=== PATIENT | male | born 1940 | race Caucasian/White ===

== ENCOUNTER 2018-02-09 06:29 | Day surgery (SDC) | payer MEDICARE ==
[2018-02-05 15:11] VITALS: BMI 26.6
[~2018-02-09 06:29] MED LIST: LACTATED RINGERS 1,000 ML IV SCH
[2018-02-09 06:54] VITALS: TEMP 97.6
[2018-02-09] MEDS ORDERED: PROPOFOL 10 MG/ML 20 ML VIAL IV ONE (07:42)
[2018-02-09] MEDS ORDERED: LIDOCAINE 1% INJ 10MG/ML (20 ML MDV) ONE (07:42)
--- NOTE | 2018-02-09 07:52 | P.GSHP ---
History of Present Illness H&P Date: 02/09/18 Chief Complaint: HistoryThe patient was placed on the operating table. The patient Polyps This a 77-year-old male referred from Dr. Martin Durham. Patient is today for colonoscopy. He's had history of previous colonic polyps. He presents today for colonoscopy. His last colonoscopy was 5 years ago. Past Medical History Past Medical History: Hyperlipidemia, Hypertension Additional Past Medical History / Comment(s): HX OF COLON POLYPS History of Any Multi-Drug Resistant Organisms: None Reported Past Surgical History: Tonsillectomy Additional Past Surgical History / Comment(s): TONSILS (CHILD), COLONOSCOPY Past Anesthesia/Blood Transfusion Reactions: No Reported Reaction Past Psychological History: No Psychological Hx Reported Smoking Status: Never smoker Past Alcohol Use History: Occasional Past Drug Use History: None Reported - Past Family History Sister(s) Family Medical History: Cancer Additional Family Medical History / Comment(s): BREAST CANCER (2 SISTERS) Medications and Allergies Home Medications Medication Instructions Recorded Confirmed Type Aspirin [Adult Low Dose Aspirin EC] 81 mg PO DAILY 02/05/18 02/09/18 History Atorvastatin [Lipitor] 10 mg PO HS 02/05/18 02/09/18 History Cholecalciferol [Vitamin D3] 1,000 unit PO DAILY 02/05/18 02/09/18 History Enalapril [Vasotec] 2.5 mg PO HS 02/05/18 02/09/18 History [place]-3 Fatty Acids [[place]-3] 1,000 mg PO DAILY 02/05/18 02/09/18 History Vit C/E/Zn/Coppr/Lutein/Zeaxan 1 each PO DAILY 02/05/18 02/09/18 History [Preservision Areds 2 Softgel] Allergies Allergy/AdvReac Type Severity Reaction Status Date / Time No Known Allergies Allergy Verified 02/05/18 15:06 Surgical - Exam Vital Signs Temp Pulse Resp BP Pulse Ox 97.6 F 60 16 182/83 95 02/09/18 06:52 02/09/18 06:52 02/09/18 06:52 02/09/18 06:52 02/09/18 06:52 - General well developed, no distress - Eyes PERRL - ENT normal pinna - Neck no masses - Respiratory normal expansion - Cardiovascular Rhythm: regular - Abdomen Abdomen: soft, non tender Assessment and Plan Assessment: History of colonic polyps. We'll perform colonoscopy.
--- NOTE | 2018-02-09 08:01 | P.OP ---
Date of Procedure: 02/09/18 Preoperative Diagnosis: History of colon polyps Postoperative Diagnosis: Mild diverticulosis Procedure(s) Performed: Colonoscopy Anesthesia: MAC Surgeon: Alexis Caruso Pathology: none sent Condition: stable Disposition: PACU Description of Procedure: The patient's placed on the endoscopy table in the lateral position. He received IV sedation. Digital rectal exam was performed which revealed no abnormalities. The prostate was symmetric without nodules. The flexible colonoscope was then placed patient anus passed throughout the entire colon. The ileocecal valve was visualized. The cecum, ascending and transverse colon appeared normal. In the descending and sigmoid colon is mild diverticulosis. The scope was then brought back the rectum and this appeared normal. Scope was withdrawn for patient. There were no polyps seen on the colonoscopy.
[2018-02-09 08:07] VITALS: RESP 18
[2018-02-09 08:18] VITALS: BP 151/73; PULSE 64
== END 2018-02-09 08:36 | disposition home or self-care (01) ==
LOC: ORWHC2ENDO 06:29
PROVIDERS: ATTEND Surgery
DX: Z12.11 Encounter for screening for malignant neoplasm of colon (principal); K57.30 Diverticulosis of large intestine without perforation or abscess without bleeding; Z86.010 Personal history of colon polyps; E78.5 Hyperlipidemia, unspecified; I10 Essential (primary) hypertension; Z79.82 Long term (current) use of aspirin; Z79.899 Other long term (current) drug therapy
CPT/HCPCS: J2001; J2704; G0105; 45378

== ENCOUNTER 2024-04-07 07:59 | Day surgery (SDC) | payer MEDICARE ==
[~2024-04-07 07:59] MED LIST changes: -LACTATED RINGERS 1,000 ML IV SCH; +TETRACAINE 0.5% OPHTH (PF) DROPS 4 ML BTL OP PRN
[2024-04-07] MEDS: LACTATED RINGERS 1,000 ML IV SCH (08:50)
[2024-04-07] MEDS: CYCLOPENTOLATE 2% OPHTH SOLN 2 ML BTL OP PRN (08:58)
[2024-04-07] MEDS: PHENYLEPHRINE 2.5% OPHTH DRP 2ML OP PRN (09:01)
[2024-04-07] MEDS: ONDANSETRON 4 MG/2 ML VIAL IVP ONE (09:12)
[2024-04-07] MEDS ORDERED: MIDAZOLAM 2 MG/2 ML VIAL ONE (09:41)
[2024-04-07] MEDS ORDERED: fentaNYL (PF) 50 MCG/ML 2 ML AMP ONE (09:41)
[2024-04-07 09:42] VITALS: RESP 18; TEMP 98.1
[2024-04-07] MEDS: MOXIFLOXACIN HCL 0.5% DROPS 3 ML BTL OP PRN (09:58)
[2024-04-07] MEDS: LIDOCAINE 1% (PF) 10MG/ML VIAL MISCELLANE ONE (09:58)
[2024-04-07] MEDS: HYALURONATE SODIUM INTRAOCULAR 1 EACH SYRINGE (12MG/ML) INTRAOCULA ONE (09:58)
[2024-04-07] MEDS: BALANCED SALT IRRIG SOLN COMB2 15 ML IRRIG.SOLN INTRAOCULA ONE (09:58)
[2024-04-07] MEDS: TIMOLOL 0.5% OPHTH DROPS 5 ML BTL OP PRN (09:59)
[2024-04-07] MEDS: EPINEPHrine (PF) 0.3 ML in BALANCED SALT IRRIG SOLN COMB2 500 ML IRRIGATION ONE (09:59)
--- NOTE | 2024-04-07 10:12 | P.OP ---
Date of Procedure: 04/07/24 Preoperative Diagnosis: NS & CS Postoperative Diagnosis: same Procedure(s) Performed: PIOL, OD Implants: MX60E 22.00 Anesthesia: MAC Surgeon: Evert Marques Pathology: none sent Condition: stable Disposition: same day Indications for Procedure: blurry vision Operative Findings: no complications
[2024-04-07 10:41] VITALS: BP 129/66; PULSE 51
--- NOTE | 2024-04-07 14:28 | OP ---
OPERATIVE REPORT DATE OF SERVICE : 04/07/2024 PREOPERATIVE DIAGNOSIS: Nuclear sclerosis, cortical sclerosis, right eye. POSTOPERATIVE DIAGNOSIS: Nuclear sclerosis, cortical sclerosis, right eye. OPERATION: Phacoemulsification of cataract and interocular lens implant of the right eye. ESTIMATED BLOOD LOSS: Zero. SPECIMEN TAKEN: None. NARRATIVE: After obtaining the appropriate consent, the patient was brought to the operating room where the patient was placed under cardiac monitoring and prepped and draped in the usual sterile manner. At the 11 o'clock position, a 15-degree super sharp blade was used to create a paracentesis followed by instillation of 1% Xylocaine MPF 50:50 mix with BSS into the anterior chamber. This was followed by Amvisc viscoelastic to stabilize the anterior chamber. At the 9 o'clock position a self-sealing corneal flap incision was created using 2.8 mm gael keratome. A cystotome was used to initiate a continuous tear capsulorrhexis which was completed with the Utrata forceps. A Binkhorst cannula was used to hydrodissect the lens nucleus followed by hydrodelineation. Phacoemulsification of the lens was performed utilizing phacochop in 17.75 seconds at 14.9 % power. The remaining cortical material was removed using the irrigation aspiration mode followed by additional 1% Xylocaine MPF into the anterior chamber followed by viscoelastic to stabilize the capsular bag. A [employer] MX60E 22.0 posterior chamber lens was placed into the capsular bag without difficulty. The remaining viscoelastic material was removed from the anterior chamber with the irrigation/aspiration. Balanced salt solution was used to normalize the intraocular pressure. The incision was checked for watertight integrity. The patient then received 2 drops of 0.5% timolol followed by 2 drops Vigamox, was lightly patched and shielded in the usual manner. There were no complications from the procedure. The patient tolerated the procedure well and was returned to recovery in good condition. MMODL / IJN: [id number] /
== END 2024-04-07 10:47 | disposition home or self-care (01) ==
LOC: OR 07:59
PROVIDERS: ATTEND Ophthalmology
DX: H25.11 Age-related nuclear cataract, right eye (principal); I10 Essential (primary) hypertension; Z79.82 Long term (current) use of aspirin; Z86.010 Personal history of colon polyps
CPT/HCPCS: 66984; C1780; J2250; J2405; J0171; J3010; J2001

== ENCOUNTER 2024-05-12 11:30 | Day surgery (SDC) | payer MEDICARE ==
[2024-05-07 14:46] VITALS: BMI 25.5
[~2024-05-12 11:30] MED LIST changes: +LIDOCAINE 1% (10MG/ML) FOR IV START INTRADERMA PRN
[2024-05-12 13:46] VITALS: TEMP 97
[2024-05-12] MEDS: CYCLOPENTOLATE 1% OPHTH SOLN 2 ML BTL OP PRN (13:46)
[2024-05-12] MEDS: PHENYLEPHRINE 2.5% OPHTH DRP 2ML OP PRN (13:50)
[2024-05-12] MEDS: LACTATED RINGERS 1,000 ML IV SCH (13:55)
[2024-05-12] MEDS: IV FLUID CONTINUATION 1,000 ML IV ONE ×2 (14:00→14:50)
[2024-05-12] MEDS ORDERED: MIDAZOLAM 2 MG/2 ML VIAL ONE (14:46)
[2024-05-12] MEDS: EPINEPHrine (PF) 0.3 ML in BALANCED SALT IRRIG SOLN COMB2 500 ML IRRIGATION ONE (14:52)
[2024-05-12] MEDS: MOXIFLOXACIN HCL 0.5% DROPS 3 ML BTL OP PRN (15:06)
[2024-05-12] MEDS: HYALURONATE SODIUM INTRAOCULAR 1 EACH SYRINGE (12MG/ML) INTRAOCULA ONE (15:07)
[2024-05-12] MEDS: TIMOLOL 0.5% OPHTH DROPS 5 ML BTL OP PRN (15:07)
[2024-05-12] MEDS: BALANCED SALT IRRIG SOLN COMB2 15 ML IRRIG.SOLN INTRAOCULA ONE (15:07)
[2024-05-12] MEDS: LIDOCAINE 1% (PF) 10MG/ML VIAL MISCELLANE ONE (15:08)
--- NOTE | 2024-05-12 15:19 | P.OP ---
Date of Procedure: 05/12/24 Preoperative Diagnosis: NS & CS Postoperative Diagnosis: same Procedure(s) Performed: PIOL, OD Implants: MX60E 22.00 Anesthesia: MAC Surgeon: Evert Marques Pathology: none sent Condition: stable Disposition: same day Indications for Procedure: blurry vision Operative Findings: no complications
[2024-05-12 15:27] VITALS: RESP 18
[2024-05-12 15:42] VITALS: BP 160/72; PULSE 68
--- NOTE | 2024-05-12 23:49 | OP ---
OPERATIVE REPORT DATE OF SERVICE : 05/12/2024 PROCEDURES PERFORMED: Phacoemulsification of cataract and intraocular lens implant of the left eye. PREOPERATIVE DIAGNOSIS: Nuclear sclerosis and cortical sclerosis, left eye. POSTOPERATIVE DIAGNOSIS: Nuclear sclerosis and cortical sclerosis, left eye. ESTIMATED BLOOD LOSS: Zero. SPECIMEN TAKEN: None. NARRATIVE: After obtaining the appropriate consent, the patient was brought to the operating room where the patient was placed under cardiac monitoring and prepped and draped in the usual sterile manner. At the 5 o'clock position, a 15-degree super sharp blade was used to create a paracentesis followed by instillation of 1% Xylocaine MPF 50:50 mix with BSS into the anterior chamber. This was followed by Amvisc viscoelastic to stabilize the anterior chamber. At the 3 o'clock position a self-sealing corneal flap incision was created using 2.8 mm gael keratome. A cystotome was used to initiate a continuous tear capsulorrhexis which was completed with the Utrata forceps. A Binkhorst cannula was used to hydrodissect the lens nucleus followed by hydrodelineation. Phacoemulsification of the lens was performed utilizing phacochop in 19.35 seconds at 15.3% power. The remaining cortical material was removed using the irrigation aspiration mode followed by additional 1% Xylocaine MPF into the anterior chamber followed by viscoelastic to stabilize the capsular bag. A [employer] MX60E 22.0 diopter posterior chamber lens was placed into the capsular bag without difficulty. The remaining viscoelastic material was removed from the anterior chamber with the irrigation/aspiration. Balanced salt solution was used to normalize the intraocular pressure. The incision was checked for watertight integrity. The patient then received 2 drops of 0.5% timolol followed by 2 drops Vigamox, was lightly patched and shielded in the usual manner. There were no complications from the procedure. The patient tolerated the procedure well and was returned to recovery in good condition. MMODL / IJN: [id number] /
== END 2024-05-12 16:00 | disposition home or self-care (01) ==
LOC: OR 11:30
PROVIDERS: ATTEND Ophthalmology
DX: H25.12 Age-related nuclear cataract, left eye (principal); I10 Essential (primary) hypertension; Z79.82 Long term (current) use of aspirin; Z90.49 Acquired absence of other specified parts of digestive tract; Z98.890 Other specified postprocedural states
CPT/HCPCS: 66984; C1780; J2250; J0171; J2001